=== PATIENT | male | born 1955 | race Caucasian/White ===

== ENCOUNTER → 2019-07-27 08:27 | Outpatient (CLI) | payer BC, SELFPAY ==
[2019-07-27 11:05] LABS: Prostate Specific Ag Screen 3.2 ng/ml (0.0-4.0)
== END ==
PROVIDERS: Visit Provider Urology
DX: R97.20 Elevated prostate specific antigen [PSA] (principal)
CPT/HCPCS: 36415; G0103

== ENCOUNTER → 2020-07-29 08:53 | Outpatient (CLI) | payer BC, SELFPAY ==
[2020-07-29 11:29] LABS: Prostate Specific Ag Screen 3.9 ng/ml (0.0-4.0)
== END ==
PROVIDERS: Visit Provider Urology
DX: Z12.5 Encounter for screening for malignant neoplasm of prostate (principal)
CPT/HCPCS: 36415; G0103

== ENCOUNTER → 2021-08-05 13:07 | Outpatient (CLI) | payer BC, SELFPAY ==
[2021-08-05 14:29] LABS: Prostate Specific Ag Screen 3.5 ng/ml (0.0-4.0)
== END ==
PROVIDERS: PCP Family Medicine; Visit Provider Urology
DX: Z12.5 Encounter for screening for malignant neoplasm of prostate (principal)
CPT/HCPCS: 36415; G0103